=== PATIENT | female | born 1955 | race Caucasian/White ===

== ENCOUNTER 2017-11-29 10:02 | Outpatient (CLI) | payer OTHER ==
--- NOTE | 2017-11-29 12:25 | RAD ---
TWO VIEWS RIGHT HIP: Indication: Right hip pain. Comparison: None. FINDINGS: There is mild degenerative arthrosis of the right hip. No acute fracture or subluxation is evident. IMPRESSION: No acute osseous abnormality. Mild degenerative arthrosis of the right hip. POS: ROBBI
--- NOTE | 2017-11-29 12:26 | RAD ---
TWO VIEWS LEFT HIP: INDICATION: Left hip pain. [place] None. FINDINGS: There is mild degenerative arthrosis of the left hip. No acute fracture or subluxation is evident. IMPRESSION: Mild degenerative arthrosis of the left hip. No acute osseous abnormality. POS: EDITH
== END 2017-11-29 10:03 | disposition home or self-care (01) ==
LOC: BICRAD 10:02
PROVIDERS: ATTEND Nurse Practitioner Family
DX: M25.551 Pain in right hip (principal); M25.552 Pain in left hip; M16.0 Bilateral primary osteoarthritis of hip

== ENCOUNTER 2018-03-10 14:12 | Outpatient (CLI) | payer OTHER ==
--- NOTE | 2018-03-16 09:11 | MMO ---
BILATERAL MAMMOGRAMS: History: Screening mammography. Comparison: Multiple outside exams back to 11-30-13. FINDINGS: Heterogeneously dense fibroglandular tissue and benign appearing calcifications. No dominant mass or suspicious calcifications. This study is interpreted with the assistance of computer aided detection. IMPRESSION: BIRADS category 1 - negative. Suggest routine follow up. POS: EDITH
== END 2018-03-10 14:13 | disposition home or self-care (01) ==
LOC: SCSMAMMO 14:12
PROVIDERS: ATTEND Family Medicine
DX: Z12.31 Encounter for screening mammogram for malignant neoplasm of breast (principal)
CPT/HCPCS: 77067

== ENCOUNTER 2018-08-17 09:23 | Outpatient (CLI) | payer OTHER | END 2018-08-17 09:24 | disposition home or self-care (01) | LOC: CTENTCT 09:23 | PROVIDERS: ATTEND Specialist | DX: J32.9 Chronic sinusitis, unspecified (principal) | CPT/HCPCS: 70486 ==

== ENCOUNTER 2018-10-11 16:09 | Outpatient (CLI) | payer OTHER ==
--- NOTE | 2018-10-11 17:50 | MRI ---
MRI LEFT SHOULDER WITHOUT CONTRAST ENHANCEMENT: HISTORY: The patient fell and has been complaining of left shoulder pain with decreased range of motion ever s marisa. FINDINGS: There is moderate arthrosis of the AC joint. The supraspinatus as well as infraspinatus tendons are intact. There are moderate edema changes in t he region of the rotator cuff interval and edema change and partial tear of the more superior fibers of the subscapularis tendon. The edema involves the upper half of the subscapularis tendon. The bic eps tendon does appear to be in normal position within the bicipital groove. There are tenosynovitis type changes of the biceps tendon sheath. 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 This is not felt to be related to acute injury. There do appear to be some mild edema c hanges involving the humeral neck and proximal humeral shaft region, but there is no associated fract ure. It is possible these changes are just related to some red marrow replacement but, given the his tory of trauma, it could be edema change. IMPRESSION: 1. Fluid seen in the subacromial/subdeltoid bursa, edema change of the rotator cuff interval, and a partial tear of the superior fibers of the subscapularis tendon. Some moderate edematous changes in the soft tissues involving the superior half of the subscapularis tendon. The biceps tendon is in no rmal position within the bicipital groove. There are tenosynovitis changes noted. 2. Prominent intralabral cyst involving the posterior-superior labrum. POS: EDITH
== END 2018-10-11 16:10 | disposition home or self-care (01) ==
LOC: SCSMRI 16:09
PROVIDERS: ATTEND Orthopaedic Surgery
DX: S46.012A Strain of muscle(s) and tendon(s) of the rotator cuff of left shoulder, initial encounter (principal)

== ENCOUNTER 2019-09-14 11:51 | Outpatient (CLI) | payer OTHER ==
--- NOTE | 2019-09-14 12:04 | RAD ---
XR Chest Pa Lat STANDARD HISTORY: Dyspnea COMPARISON: 10/18/2018 FINDINGS: The heart size is normal. The lungs are well expanded without focal areas of consolidation, pneumothorax or pleural effusions. IMPRESSION: No radiographic evidence of acute cardiopulmonary process.
== END 2019-09-14 11:52 | disposition home or self-care (01) ==
LOC: BICRAD 11:51
PROVIDERS: ATTEND Internal Medicine Critical Care Medicine
DX: R06.00 Dyspnea, unspecified (principal)
CPT/HCPCS: 71046

== ENCOUNTER 2020-01-02 06:54 | Outpatient (CLI) | payer OTHER ==
[2020-01-02 14:10] LABS: Hemoglobin 13.4 g/dL (12.0-16.0); Mean Corpuscular HGB CONC 32.3 G/DL (32.0-36.0); Mean Corpuscular Hemoglobin 26.7 PG (27.0-33.0); Mean Corpuscular Volume 82.8 fl (80.0-100.0); Mean Platelet Volume 11.2 fl (7.4-10.4); Platelet Count 290 10x3/uL (130-400); RBC Distribution Width 14.4 % (11.5-14.5); Red Blood Cell (RBC) Count 5.01 10x6/uL (3.90-5.20); White Blood Cell (WBC) Count 4.9 10x3/uL (4.5-11.0)
[2020-01-02 14:26] LABS: PTT 25.9 sec (22.0-33.0); Prothrombin Time 10.7 sec (9.5-12.1)
[2020-01-02 14:31] LABS: Anion Gap 15 mmol/L (10-20); BUN (Urea Nitrogen) 22 mg/dL (9.8-20.1); Calc. Creatinine Clearance 0 mL/min (70-130); Calcium 9.7 mg/dL (7.8-10.44); Carbon Dioxide 28 mmol/L (23-31); Chloride 103 mmol/L (98-107); Estimated GFR-MDRD 46; Glucose 98 mg/dL (80-115); Potassium 4.8 mmol/L (3.5-5.1); Sodium 141 mmol/L (136-145)
--- NOTE | 2020-01-02 23:46 | EKG ---
Test Reason : Blood Pressure : / mmHG Vent. Rate : 046 BPM Atrial Rate : 046 BPM P-R Int : 142 ms QRS Dur : 076 ms QT Int : 454 ms P-R-T Axes : 063 019 004 degrees QTc Int : 397 ms Sinus bradycardia Low voltage QRS Nonspecific ST abnormality Abnormal ECG No previous ECGs available Confirmed by Sam DELA CRUZ ([id number]) on 01/02/2020 11:46:34 PM Referred By: DWAIN Confirmed By:Sam DELA CRUZ
[2020-01-03 12:57] LABS: SARS-CoV-2 MS2 Positive; SARS-CoV-2 N Gene Negative; SARS-CoV-2 S Gene Negative; SARS-CoV-2 by NAA Not Detected (NotDetected); SARS-CoV-2 orf1ab Negative
== END 2020-01-02 06:55 | disposition home or self-care (01) ==
LOC: LABBT 06:54
PROVIDERS: ATTEND Surgery
DX: Z01.818 Encounter for other preprocedural examination (principal); Z20.828 Contact with and (suspected) exposure to other viral communicable diseases; M51.16 Intervertebral disc disorders with radiculopathy, lumbar region; M48.062 Spinal stenosis, lumbar region with neurogenic claudication
CPT/HCPCS: 80048; 85027; 85610; 85730; 87635; 93005; 93010; U0003

== ENCOUNTER 2020-01-04 06:00 | Observation (INO) | payer OTHER ==
[2020-01-04] MEDS ORDERED: Lidocaine 2% Jelly 5 ML TUBE ONE (06:24)
[2020-01-04] MEDS ORDERED: Fentanyl 100 MCG/2 ML VIAL ONE ×4 (06:24→15:58)
[2020-01-04] MEDS ORDERED: Levofloxacin 500 mg/D5W 100 ml Premix Bag ONE (06:33)
[2020-01-04] MEDS ORDERED: Clindamycin/D5W 900 mg/50 ml Premix Bag ONE ×2 (06:33→15:52)
[2020-01-04] MEDS ORDERED: Thrombin 5000 UNITS/5 ML VIAL ONE (06:43)
[2020-01-04] MEDS ORDERED: Mag-Al 1200 mg/1200 mg/30 ML UDCUP PO PRN (10:48)
[2020-01-04] MEDS ORDERED: Morphine 2 MG/ML VIAL SLOW IVP PRN (10:48)
[2020-01-04] MEDS ORDERED: Ondansetron PF 4 MG/2 ML Vial IVP PRN (10:48)
[2020-01-04] MEDS ORDERED: Milk Of Magnesia 30 ML UDCUP PO PRN (10:48)
[2020-01-04] MEDS ORDERED: Bisacodyl 10 MG SUPP PR PRN (10:48)
[2020-01-04] MEDS ORDERED: Acetaminophen 325 MG TAB PO PRN (10:48)
[2020-01-04] MEDS ORDERED: Promethazine HCl 25 MG/ML VIAL IM PRN ×2 (10:48→11:00)
[2020-01-04] MEDS ORDERED: Acetaminophen/Codeine 30-300mg Tablet PO PRN (10:48)
[2020-01-04] MEDS ORDERED: Ondansetron HCl/PF 4 MG/2 ML Vial IVP PRN (11:00)
[2020-01-04] MEDS ORDERED: Promethazine HCl 25 MG/ML VIAL SLOW IVP PRN (11:00)
[2020-01-04] MEDS ORDERED: Metoprolol Tartrate 5 MG/5 ML VIAL ONE ×2 (11:18→11:26)
[2020-01-04] MEDS ORDERED: Glycopyrrolate 0.2 MG/ML 5 ML SYRINGE ONE (11:26)
[2020-01-04] MEDS ORDERED: Rocuronium Bromide 10 MG/ML (10ML VIAL) ONE (11:26)
[2020-01-04] MEDS ORDERED: Esmolol 100 MG/10 ML VIAL ONE (11:26)
[2020-01-04] MEDS ORDERED: EPHEDRINE 25 MG/5 ML SYRINGE ONE (11:26)
[2020-01-04] MEDS ORDERED: Dexamethasone 20 MG/5 ML VIAL ONE (11:26)
[2020-01-04] MEDS ORDERED: Lidocaine 1% PF 5 ML VIAL ONE (11:26)
[2020-01-04] MEDS ORDERED: Ondansetron PF 4 MG/2 ML Vial ONE (11:26)
[2020-01-04] MEDS ORDERED: PHENYLEPHRINE-NS 100 MCG/ML 10 ML SYRINGE ONE (11:26)
[2020-01-04] MEDS ORDERED: PROPOFOL 200 MG/20 ML VIAL ONE (11:26)
[2020-01-04] MEDS: Sodium Chloride 0.9% 1,000 ML IV SCH ×2 (11:30→23:23)
[2020-01-04] MEDS ORDERED: Digoxin 0.5 MG/2 ML AMP ONE (12:23)
[2020-01-04] MEDS ORDERED: Flecainide 50 MG TAB PO SCH (13:15)
--- NOTE | 2020-01-04 13:21 | OP ---
DATE OF PROCEDURE: 01/04/2020 LOCATION: OR 12. RUBBER TUBING SPLICER: Latricia Palomo PA-C PREPROCEDURE DIAGNOSES: Low back with bilateral lumbar radiculopathy with right greater than left lower extremity symptoms and multilevel lumbar stenosis with lateral disk extrusion. POSTPROCEDURE DIAGNOSES: Low back with bilateral lumbar radiculopathy with right greater than left lower extremity symptoms and multilevel lumbar stenosis with lateral disk extrusion. PROCEDURES PERFORMED: 1. L2-L3 laminectomy, partial facetectomy, foraminotomy. 2. Right L3-L4 and right L4-L5 revision hemilaminotomy, foraminotomies for decompression of the traversing nerve roots of right L4 and right L5. 3. Right L4-L5 trans-facet diskectomy for decompression of the exiting right L4 nerve root, lateral and far-lateral diskectomy. 4. Use of operating microscope for microdissection. DESCRIPTION OF PROCEDURE: After informed consent was obtained from the patient, the patient was brought to the OR. Proper patient, pause, and identification were carried out. She was placed under excellent general endotracheal anesthesia and positioned prone on the OR table. All appropriate points were padded. We identified the L2, L3, L4, L5 dorsal spines and lamina. A linear miladis was made over this region. This area was sterilely cleansed, prepared, and draped. Proper patient, pause, and identification were carried out. The prior wound and new portion of the wound were opened and the L2-L3 and right L3-L4 and right L4-L5 Mario's segments were all exposed. Localization film confirmed area of interest. We then performed L2-L3 laminectomy, partial facetectomy, foraminotomy and then right L3-L4 and right L4-L5 revision hemilaminotomy and foraminotomies. We then brought the microscope in for microdissection and a right L4-L5 trans-facet diskectomy was performed. Partial pediculectomies transpedicularly at the L4 portion of the L5 segment to completely skeletonize the exiting right L4 nerve root. We removed disk fragments from the lateral and far-lateral components in the right L4-L5 trans-facet region. Copious irrigation occurred throughout as did maximizing hemostasis. There was no CSF leak. The wound was then copiously irrigated following the sprinkling of vancomycin powder and copious irrigation. The patient then emerged from anesthesia. Job ID: [id number]
[2020-01-04] MEDS ORDERED: Clindamycin/D5W 900 MG in Premix Bag 1 BAG IVPB SCH (14:00)
--- NOTE | 2020-01-04 14:36 | CON ---
DATE OF CONSULTATION: HISTORY OF PRESENT ILLNESS: The patient is a 64-year-old woman with a history of ventricular tachycardia, who underwent surgery today, and was found to be in a rapid irregular heart rhythm. The patient has a previous history of ventricular tachycardia. She has previously undergone cardiac evaluation including stress testing and an echocardiogram, which were unremarkable. The patient in 2012 saw by an bulk gas specialist and has been placed on metoprolol. She has done well with this medication. She reports occasional palpitations. She denies having any chest discomfort. The patient today underwent surgery today and was noted to be in a irregular heart rhythm. The patient denies having any palpitations or dizziness. PAST MEDICAL HISTORY: 1. Ventricular ectopy. 2. GE reflux. PAST SURGICAL HISTORY: Hysterectomy. SOCIAL HISTORY: Nonsmoker. MEDICATIONS: 1. Metoprolol 25 at bedtime. 2. Singulair 10 at bedtime. 3. Zoloft 100 daily. 4. Zocor 10 daily. ALLERGIES: ERYTHROMYCIN, HYDROCORTISONE, PENICILLIN, AND TRAMADOL. FAMILY HISTORY: Positive family history of coronary artery disease. REVIEW OF SYSTEMS: Ten-point system otherwise unremarkable. No history of easy bruising or bleeding. PHYSICAL EXAMINATION: GENERAL: Well-developed woman, in no acute distress. VITAL SIGNS: Blood pressure was 90/60, heart rate was 120 and irregular. NECK: No jugular venous distention. LUNGS: Clear to auscultation. HEART: Irregular rate and rhythm. Normal S1 and S2. ABDOMEN: Nondistended. EXTREMITIES: Showed no edema. VASCULAR: Radial pulses are 2+. LABORATORY RESULTS: Sodium 141, potassium 4.8, chloride 103, bicarbonate 28, BUN 22, and creatinine 1.19. White blood cell count 4.9, hemoglobin 13.4, hematocrit 41.5, and platelets are 290. EKG atrial fibrillation with a rapid ventricular response. IMPRESSION: 1. Atrial fibrillation. 2. History of ventricular tachycardia. 3. History of gastroesophageal reflex. 4. Dyslipidemia. PLAN: This patient developed postoperative atrial fibrillation. She was definitely in sinus bradycardia before the procedure. From a cardiac standpoint, we will give her a 300 mg dose of flecainide and try to convert her. If this does not work, then she may need, and I will consider electrical cardioversion. We will follow this patient with you through her hospitalization. Job ID: [id number] [facility]
[2020-01-04] MEDS ORDERED: tiZANidine HCl 4 MG TAB ONE (15:52)
[2020-01-04] MEDS: tiZANidine HCl 4 MG TAB PO PRN (15:54)
[2020-01-04] MEDS ORDERED: Sodium Chloride 0.9% 10 ML ONE ×2 (17:22→20:56)
[2020-01-04] MEDS ORDERED: Morphine 2 MG/ML VIAL ONE (20:56)
[2020-01-04] MEDS ORDERED: Montelukast Sodium 10 mg Tablet PO SCH (21:00)
[2020-01-04] MEDS ORDERED: GLUC SU PO SCH (21:00)
[2020-01-04] MEDS ORDERED: [UNRECOGNIZED DRUG - OTHER] PO SCH (21:00)
[2020-01-04] MEDS ORDERED: CHONDRO SU A PO SCH (21:00)
[2020-01-04] MEDS ORDERED: VIT C PO SCH (21:00)
[2020-01-04] MEDS ORDERED: Simvastatin 10 MG TAB PO SCH (21:00)
[2020-01-04] MEDS ORDERED: Metoprolol Tartrate 25 MG TAB PO SCH (21:00)
[2020-01-04] MEDS: Clindamycin/D5W 900 MG in Premix Bag 1 BAG IVPB SCH (23:15)
[2020-01-04 23:37] VITALS: BMI 31.6
[2020-01-05] MEDS: tiZANidine HCl 4 MG TAB PO PRN (01:57)
[2020-01-05] MEDS: Acetaminophen/Codeine 30-300mg Tablet PO PRN ×3 (01:57→12:55)
[2020-01-05] MEDS ORDERED: Hydrochlorothiazide 25 MG TAB PO SCH (09:00)
[2020-01-05] MEDS: Clindamycin/D5W 900 MG in Premix Bag 1 BAG IVPB SCH (10:19)
[2020-01-05] MEDS ORDERED: Dexamethasone 10 MG/ML VIAL SLOW IVP SCH (11:00)
--- NOTE | 2020-01-05 11:18 | PRG ---
DATE OF SERVICE: 01/05/2020 Ms. Dave is postoperative day 1 from L2-L3 laminectomy, right L3-L4 and right L4-L5 hemilaminotomy and foraminotomies with trans-facet diskectomy on the right side. This was revision surgery. She had some right buttock and posterior thigh "ache" with ambulation. We will initiate a Decadron bolus and taper and she will be able to go home today as long as our cardiology colleagues are okay with that. She did go from SVT into atrial fibrillation with rapid ventricular response. This morning, she has normal sinus rhythm, and while her blood pressure is 94/55 this morning, her hemodynamics have been stable with conversion with flecainide. The patient to let me know that the plan will likely be monitoring with telemetry at home for the next few weeks by Dr. Yo. Job ID: [id number]
[2020-01-05 12:19] VITALS: BP 90/50; TEMP 98.3
--- NOTE | 2020-01-05 12:54 | PRG ---
DATE OF SERVICE: 01/05/2020 SUBJECTIVE: Ms. Dave was admitted overnight for postop atrial fibrillation. This was short-lived. She was given flecainide x1 dose. She cardioverted to sinus rhythm. She has been currently doing well. No current complaints. She has been in sinus rhythm. OBJECTIVE: VITAL SIGNS: , pulse 87, temperature 98.3. LUNGS: Clear to auscultation. HEART: Regular rate and rhythm. ABDOMEN: Soft, nontender, nondistended. EXTREMITIES: No edema. IMPRESSION: Paroxysmal atrial fibrillation. RECOMMENDATIONS: Ms. Dave has had VT in the past, but never atrial fibrillation. Her atrial fibrillation was short-lived. I discussed CHADS-VASc score with Ms. Dave. Her only risk factor is being a woman. She is 64 and on the verge of 65, which would include another risk factor. Risks and benefits of anticoagulation therapy were discussed with Ms. Dave. She opted against anticoagulation therapy. I also discussed the case Dr. Tres Jean. Cannot take aspirin for another 4 days. I would recommend full-dose aspirin 4 days after her surgery. We will also recommend a 3-week event recorder. Otherwise, okay for discharge. Job ID: [id number]
--- NOTE | 2020-01-07 20:53 | EKG ---
Test Reason : POST OP Blood Pressure : / mmHG Vent. Rate : 124 BPM Atrial Rate : 144 BPM P-R Int : 000 ms QRS Dur : 078 ms QT Int : 370 ms P-R-T Axes : 000 037 -60 degrees QTc Int : 531 ms Atrial fibrillation with rapid ventricular response Nonspecific ST and T wave abnormality , probably digitalis effect Abnormal ECG When compared with ECG of 02-JAN-2020 12:15, Atrial fibrillation has replaced Sinus rhythm Vent. rate has increased BY 78 BPM Nonspecific T wave abnormality now evident in Lateral leads Confirmed by Sam DELA CRUZ ([id number]) on 01/07/2020 8:53:13 PM Referred By: DEBORAH Confirmed By:Sam DELA CRUZ
--- NOTE | 2020-01-07 20:54 | EKG ---
Test Reason : Blood Pressure : / mmHG Vent. Rate : 047 BPM Atrial Rate : 047 BPM P-R Int : 164 ms QRS Dur : 080 ms QT Int : 454 ms P-R-T Axes : 040 003 -21 degrees QTc Int : 401 ms Sinus bradycardia Nonspecific T wave abnormality Abnormal ECG When compared with ECG of 04-JAN-2020 11:50, (Unconfirmed) Sinus rhythm has replaced Atrial fibrillation Vent. rate has decreased BY 77 BPM Confirmed by Sam DELA CRUZ ([id number]) on 01/07/2020 8:53:49 PM Referred By: SOPHIE Confirmed By:Sam DELA CRUZ
== END 2020-01-05 13:42 | disposition home or self-care (01) ==
LOC: SDC 06:00 → 2NO 13:15 → SDC 01-05 10:56 → 2NO 01-05 10:56
PROVIDERS: ADMIT Surgery; ATTEND Surgery
PROC: 00NY0ZZ Release Lumbar Spinal Cord, Open Approach (ICD-10-PCS; principal; 2020-01-04)
PROC: 0SB20ZZ Excision of Lumbar Vertebral Disc, Open Approach (ICD-10-PCS; 2020-01-04)
PROC: 0ST20ZZ Resection of Lumbar Vertebral Disc, Open Approach (ICD-10-PCS; 2020-01-04)
DX: M48.061 Spinal stenosis, lumbar region without neurogenic claudication (principal); M51.16 Intervertebral disc disorders with radiculopathy, lumbar region; I97.190 Other postprocedural cardiac functional disturbances following cardiac surgery; I48.0 Paroxysmal atrial fibrillation; E78.5 Hyperlipidemia, unspecified; Z79.899 Other long term (current) drug therapy; Z88.1 Allergy status to other antibiotic agents; Z88.5 Allergy status to narcotic agent; Z88.8 Allergy status to other drugs, medicaments and biological substances
CPT/HCPCS: 76000; 93005; 93010; 96374; 96375; 96376; G0378; J1100; J1160; J1956; J2270; J2405; J2704; J3010; J3370; J3490

== ENCOUNTER 2020-09-06 16:30 | Outpatient (CLI) | payer BC | END 2020-09-06 16:31 | disposition home or self-care (01) | LOC: SLEEPLAB 16:30 | PROVIDERS: ATTEND Dentist General Practice | DX: G47.33 Obstructive sleep apnea (adult) (pediatric) (principal); G47.63 Sleep related bruxism; G47.00 Insomnia, unspecified | CPT/HCPCS: 95806 ==

== ENCOUNTER 2020-12-18 07:39 | Outpatient (CLI) | payer MEDICARE | END 2020-12-18 07:40 | disposition home or self-care (01) | LOC: TBSIIMAG 07:39 | PROVIDERS: ATTEND Nurse Practitioner Family | DX: M47.22 Other spondylosis with radiculopathy, cervical region (principal); M50.122 Cervical disc disorder at C5-C6 level with radiculopathy; M48.02 Spinal stenosis, cervical region | CPT/HCPCS: 72141 ==

== ENCOUNTER 2021-03-05 06:05 | Day surgery (SDC) | payer MEDICARE ==
[2021-02-26 12:41] VITALS: BMI 31.2
[2021-03-05] MEDS ORDERED: Midazolam HCl 2 mg/2 ml Vial ONE (06:22)
[2021-03-05] MEDS ORDERED: Fentanyl 100 MCG/2 ML VIAL ONE (06:22)
[2021-03-05] MEDS ORDERED: Propofol 500 MG/50 ML VIAL ONE (06:22)
[2021-03-05] MEDS ORDERED: Heparin 10,000 UNITS/ 10 ML VIAL ONE (06:25)
[2021-03-05] MEDS ORDERED: Protamine Sulfate 50 MG/5 ML VIAL ONE (06:25)
[2021-03-05] MEDS ORDERED: Heparin 25,000 units/D5W 500 ML ONE (06:25)
[2021-03-05] MEDS ORDERED: SUGAMMADEX SODIUM 200 MG/2 ML VIAL ONE (06:43)
[2021-03-05] MEDS ORDERED: Famotidine/PF 20 mg/2ml Vial ONE (06:43)
[2021-03-05] MEDS ORDERED: PROPOFOL 200 MG/20 ML VIAL ONE (07:38)
[2021-03-05] MEDS ORDERED: Rocuronium Bromide 10 MG/ML (10ML VIAL) ONE (07:38)
[2021-03-05] MEDS ORDERED: Phenylephrine 10 MG/ML VIAL ONE (07:38)
[2021-03-05] MEDS ORDERED: Ondansetron PF 4 MG/2 ML Vial ONE (07:38)
[2021-03-05] MEDS ORDERED: Ketorolac Tromethamine 30 MG/ML VIAL ONE (07:38)
[2021-03-05] MEDS ORDERED: Lidocaine 1% PF 5 ML VIAL ONE (07:38)
[2021-03-05] MEDS ORDERED: Dexamethasone 20 MG/5 ML VIAL ONE (07:38)
[2021-03-05] MEDS ORDERED: Metoclopramide HCl 10 MG/2 ML VIAL ONE (07:38)
[2021-03-05] MEDS ORDERED: Isoproterenol 0.2 MG/1 ML AMP ONE ×2 (08:37→08:38)
[2021-03-05] MEDS ORDERED: Acetaminophen 500 MG TAB ONE (11:15)
[2021-03-05] MEDS ORDERED: Pregabalin 50 MG CAP PO SCH (11:45)
== END 2021-03-05 15:20 | disposition home or self-care (01) ==
LOC: CCL 06:05
PROVIDERS: ATTEND Internal Medicine Cardiovascular Disease
PROC: 4A023FZ Measurement of Cardiac Rhythm, Percutaneous Approach (ICD-10-PCS; principal; 2021-03-05)
PROC: 4A0234Z Measurement of Cardiac Electrical Activity, Percutaneous Approach (ICD-10-PCS; 2021-03-05)
PROC: 02583ZZ Destruction of Conduction Mechanism, Percutaneous Approach (ICD-10-PCS; 2021-03-05)
PROC: 02K83ZZ Map Conduction Mechanism, Percutaneous Approach (ICD-10-PCS; 2021-03-05)
DX: I48.0 Paroxysmal atrial fibrillation (principal); I48.4 Atypical atrial flutter; I49.5 Sick sinus syndrome; I10 Essential (primary) hypertension; Z79.01 Long term (current) use of anticoagulants; Z79.899 Other long term (current) drug therapy; Z88.0 Allergy status to penicillin; Z88.1 Allergy status to other antibiotic agents; Z88.5 Allergy status to narcotic agent
CPT/HCPCS: 85347; 93005; 93613; 93622; 93623; 93655; 93656; 93657; 93662; C1732; C1759; C1776; J1100; J1644; J1885; J2250; J2370; J2405; J2704; J2720; J2765; J3010; S0028

== ENCOUNTER 2021-10-06 08:59 | Outpatient (CLI) | payer MEDICARE, BC | END 2021-10-06 09:00 | disposition home or self-care (01) | LOC: LABBT 08:59 | PROVIDERS: ATTEND Surgery | DX: Z01.812 Encounter for preprocedural laboratory examination (principal); M50.20 Other cervical disc displacement, unspecified cervical region; M54.12 Radiculopathy, cervical region; M48.02 Spinal stenosis, cervical region | CPT/HCPCS: 80048; 85027; 85610; 85730; 86850; 86900; 86901; 87811 ==

== ENCOUNTER 2021-10-09 05:55 | Observation (INO) | payer MEDICARE, BC ==
[2021-10-06 10:11] LABS: Mean Corpuscular HGB CONC 32.4 g/dL (32.0-36.0); Mean Corpuscular Hemoglobin 25.9 pg (27.0-33.0); Mean Corpuscular Volume 79.9 fl (81.6-98.3); Mean Platelet Volume 10.2 fl (7.4-10.4); Platelet Count 249 10x3/uL (150-450); RBC Distribution Width 15.2 % (11.5-14.5); Red Blood Cell (RBC) Count 5.02 10x6/uL (3.90-5.03); White Blood Cell (WBC) Count 3.7 10x3/uL (3.5-10.5)
[2021-10-06 10:40] LABS: INR-International Normal Ratio 0.9; PTT 23.6 sec (22.0-33.0); Prothrombin Time 10.2 sec (9.5-12.1)
[2021-10-06 10:46] LABS: Anion Gap 14 mmol/L (10-20); BUN (Urea Nitrogen) 24 mg/dL (9.8-20.1); Calc. Creatinine Clearance 0 mL/min (70-130); Calcium 9.6 mg/dL (7.8-10.44); Carbon Dioxide 29 mmol/L (23-31); Chloride 106 mmol/L (98-107); Estimated GFR 49; Glucose 101 mg/dL (80-115); Potassium 4.9 mmol/L (3.5-5.1); Sodium 144 mmol/L (136-145)
[2021-10-07 12:19] VITALS: BMI 33.6
[2021-10-09] MEDS ORDERED: Thrombin 5000 UNITS/5 ML VIAL ONE ×2 (06:25→08:04)
[2021-10-09] MEDS ORDERED: fentaNYL Citrate/PF 100 MCG/2 ML SYRINGE ONE (06:30)
[2021-10-09] MEDS ORDERED: Midazolam HCl 2 mg/2 ml Vial ONE (06:30)
[2021-10-09] MEDS ORDERED: SUGAMMADEX SODIUM 200 MG/2 ML VIAL ONE (06:31)
[2021-10-09] MEDS ORDERED: HYDROmorphone 0.5 MG/0.5 ML SYRINGE ONE (06:31)
[2021-10-09] MEDS ORDERED: Sodium Chloride 0.9% 100 ML ONE (07:28)
[2021-10-09] MEDS ORDERED: CEFAZOLIN 2 GM VIAL ONE (07:28)
[2021-10-09] MEDS ORDERED: Ondansetron PF 4 MG/2 ML Vial ONE (07:40)
[2021-10-09] MEDS ORDERED: Lidocaine 1% PF 5 ML VIAL ONE (07:40)
[2021-10-09] MEDS ORDERED: PROPOFOL 200 MG/20 ML VIAL ONE (07:40)
[2021-10-09] MEDS ORDERED: Dexamethasone 20 MG/5 ML VIAL ONE (07:40)
[2021-10-09] MEDS ORDERED: Rocuronium Bromide 10 MG/ML (10ML VIAL) ONE (07:40)
[2021-10-09] MEDS ORDERED: Ketorolac Tromethamine 30 MG/ML VIAL ONE (07:40)
[2021-10-09] MEDS ORDERED: diphenhydrAMINE 25 MG CAP PO PRN (09:42)
[2021-10-09] MEDS ORDERED: Ondansetron PF 4 MG/2 ML Vial IVP PRN (09:42)
[2021-10-09] MEDS ORDERED: Morphine 2 MG/ML VIAL SLOW IVP PRN (09:42)
[2021-10-09] MEDS ORDERED: traMADol HCl 50 MG TAB PO PRN (09:42)
[2021-10-09] MEDS ORDERED: Acetaminophen 325 MG TAB PO PRN (09:42)
[2021-10-09] MEDS ORDERED: ceFAZolin 2 GM/Dextrose 50 ML 2 GM in Premix Bag 1 BAG IVPB SCH (09:45)
[2021-10-09] MEDS ORDERED: Chloraseptic Spray 180 ml Bottle PO PRN (09:47)
[2021-10-09] MEDS ORDERED: oxyCODONE 5 MG TAB PO PRN (09:47)
[2021-10-09] MEDS ORDERED: Fentanyl 100 MCG/2 ML VIAL ONE ×3 (09:55→10:52)
[2021-10-09] MEDS ORDERED: Non-Formulary Medication 1 EACH PO PRN (10:03)
[2021-10-09] MEDS ORDERED: Promethazine HCl 25 MG/ML VIAL IM/IV PRN (10:15)
[2021-10-09] MEDS ORDERED: Ondansetron HCl/PF 4 MG/2 ML Vial IVP PRN (10:15)
[2021-10-09] MEDS ORDERED: HYDROmorphone 2 MG/ML VIAL SLOW IVP PRN (10:15)
[2021-10-09] MEDS: Pregabalin 50 MG CAP PO SCH ×3 (12:26→21:02)
[2021-10-09] MEDS: Sodium Chloride 0.9% 1,000 ML IV SCH ×2 (12:27→22:07)
[2021-10-09] MEDS: Acetaminophen/Codeine 30-300mg Tablet PO PRN ×2 (12:31→18:35)
[2021-10-09] MEDS ORDERED: tiZANidine HCl 4 MG TAB PO PRN (12:45)
[2021-10-09] MEDS: Cepastat Lozenges 1 LOZ PO PRN (13:45)
[2021-10-09] MEDS: CEFAZOLIN 2 GM in Sodium Chloride 0.9% 100 ML IVPB SCH ×2 (15:16→21:03)
[2021-10-09] MEDS ORDERED: Montelukast Sodium 10 mg Tablet PO SCH (21:00)
[2021-10-09] MEDS ORDERED: Atorvastatin Calcium 10 MG TAB PO SCH (21:00)
[2021-10-09] MEDS ORDERED: Non-Formulary Item 1 EACH (Omeprazole [Omeprazole] 40 MG Capsule.Dr) PO SCH (21:00)
[2021-10-09] MEDS ORDERED: Simvastatin 10 MG TAB PO SCH (21:00)
[2021-10-09] MEDS ORDERED: Metoprolol Tartrate 25 MG TAB PO SCH (21:00)
[2021-10-10] MEDS: Acetaminophen/Codeine 30-300mg Tablet PO PRN ×2 (03:07→10:25)
[2021-10-10] MEDS: CEFAZOLIN 2 GM in Sodium Chloride 0.9% 100 ML IVPB SCH (05:17)
[2021-10-10] MEDS ORDERED: Hydrochlorothiazide 25 MG TAB PO SCH (09:00)
[2021-10-10] MEDS ORDERED: Non-Formulary Item 1 EACH (Sertraline Hcl [Zoloft] 20 MG/1 ML Ml) PO SCH (09:00)
[2021-10-10] MEDS: Pregabalin 50 MG CAP PO SCH ×2 (09:07→13:23)
[2021-10-10 09:10] VITALS: BP 104/70; TEMP 97.4
[2021-10-10] MEDS: Cepastat Lozenges 1 LOZ PO PRN (11:54)
[2021-10-10] MEDS: Sodium Chloride 0.9% 1,000 ML IV SCH (14:28)
== END 2021-10-10 13:35 | disposition home or self-care (01) ==
LOC: SDC 05:55 → SURG A 07:00
PROVIDERS: ADMIT Surgery; ATTEND Surgery
PROC: 0RG20A0 Fusion of 2 or more Cervical Vertebral Joints with Interbody Fusion Device, Anterior Approach, Anterior Column, Open Approach (ICD-10-PCS; principal; 2021-10-09)
DX: M48.02 Spinal stenosis, cervical region (principal); M50.122 Cervical disc disorder at C5-C6 level with radiculopathy; G25.81 Restless legs syndrome; I47.2 Ventricular tachycardia; I48.91 Unspecified atrial fibrillation; K21.9 Gastro-esophageal reflux disease without esophagitis; Z79.01 Long term (current) use of anticoagulants; Z79.899 Other long term (current) drug therapy; Z88.0 Allergy status to penicillin; Z88.5 Allergy status to narcotic agent; Z20.822 Contact with and (suspected) exposure to COVID-19
CPT/HCPCS: 20930; 20936; 22551; 22552; 22845; 22853 ×2; 76000; 80048; 85027; 85610; 85730; 86850; 86900; 86901; 87811; C1713 ×4; 36415; J0690; J1100; J1170; J1885; J2250; J2405; J2704; J3010; J3490; J7050

== ENCOUNTER 2024-02-16 08:00 | Outpatient (CLI) | payer MEDICARE | END 2024-02-16 08:01 | disposition home or self-care (01) | LOC: SCSMRI 08:00 | PROVIDERS: ATTEND Family Medicine | DX: M47.814 Spondylosis without myelopathy or radiculopathy, thoracic region (principal); M47.22 Other spondylosis with radiculopathy, cervical region; E07.89 Other specified disorders of thyroid; D73.89 Other diseases of spleen; M50.121 Cervical disc disorder at C4-C5 level with radiculopathy; M48.02 Spinal stenosis, cervical region; M25.78 Osteophyte, vertebrae; M50.33 Other cervical disc degeneration, cervicothoracic region; Z98.1 Arthrodesis status | CPT/HCPCS: 72040; 72070; 72141; 72146 ==